=== PATIENT | male | born 1950 | race Caucasian/White ===

== ENCOUNTER → 2023-05-13 13:58 | Outpatient (CLI) | payer MEDICARE, SELFPAY ==
--- NOTE | 2023-05-13 14:03 | DI.US.S_ITS ---
PROCEDURE: US ABD AORTA ANEURYSM SCREEN INDICATIONS: NICOTINE DEPENDENCE TECHNIQUE: Real time scanning was performed of the aorta and iliac arteries, with image documentation. COMPARISON: None. FINDINGS: Aorta: Proximal aortic diameter measures 2.8 x 2.9 cm. Mid-aorta measures 2.1 cm. Distal aortic diameter is 1.9 cm. Iliac arteries: Right common iliac artery measures 1.4 cm. Left common iliac artery measures 1.2 cm. IMPRESSION: Negative screening abdominal aortic ultrasound for abdominal aortic aneurysm. However, due to the presence of ectasias a in the proximal abdominal aorta, 5 year follow-up ultrasound is suggested based on ACR white paper. Dictated by: Zackery Traylor M.D. on 05/13/2023 at 15:14 Approved by: Zackery Traylor M.D. on 05/13/2023 at 15:15
== END ==
PROVIDERS: PCP Family Medicine; Referring Provider Family Medicine; Visit Provider Family Medicine
DX: Z13.6 Encounter for screening for cardiovascular disorders (principal); I77.811 Abdominal aortic ectasia; Z87.891 Personal history of nicotine dependence
CPT/HCPCS: 76706